=== PATIENT | female | born 1980 | race Caucasian/White ===

== ENCOUNTER 2020-01-16 16:43 | Emergency (ER) | payer MEDICAID ==
[2020-01-16 16:57] VITALS: BP 154/88; Ht 154.9 cm
== END 2020-01-16 17:50 | disposition home or self-care (01) ==
LOC: ED 16:43
DX: G47.00 Insomnia, unspecified (principal); F41.9 Anxiety disorder, unspecified

== ENCOUNTER 2020-03-03 14:59 | Emergency (ER) | payer MEDICAID, SELFPAY ==
[~2020-03-03] VITALS: Ht 157.5 cm; Wt 101.2 kg
[2020-03-03 15:20] VITALS: BP 120/58; Ht 157.5 cm; Wt 101.2 kg
== END 2020-03-03 15:56 | disposition home or self-care (01) ==
LOC: ED 14:59
DX: O98.512 Other viral diseases complicating pregnancy, second trimester (principal); Z20.828 Contact with and (suspected) exposure to other viral communicable diseases
CPT/HCPCS: U0003-CS